=== PATIENT | female | born 1945 | race Caucasian/White ===

== ENCOUNTER 2017-11-10 17:48 | Inpatient (IN) ==
[2017-11-10] MEDS ORDERED: 0.9 % Sodium Chloride 1,000 ML IVC ONE (18:02)
[2017-11-10] MEDS ORDERED: Ondansetron 4 MG/2 ML VIAL IVP ONE ×2 (18:11→21:04)
[2017-11-10 18:46] LABS: Basophils # 0.1 K/mcL (0.0-0.2); Eosinophils # 0.1 K/mcL (0.0-0.6); Eosinophils % 0.8 %; Hematocrit 42.4 % (35.3-44.9); Hemoglobin 14.1 g/dL (11.5-15.4); Immature Granulocytes % 0.1 % (0-4); Lymphocytes # 1.5 K/mcL (0.6-4.6); Lymphocytes % 14.6 %; Mean Corpuscular HGB Conc 33.3 g/dL (31.6-35.5); Mean Corpuscular Volume 90.2 fL (83.0-100.0); Mean Platelet Volume 10.5 fL (9.4-12.4); Monocytes # 0.4 K/mcL (0.0-1.3); Monocytes % 4.3 %; Platelet Count 272 K/mcL (140-400); Segmented Neutrophils % 79.2 %
[2017-11-10 19:09] LABS: INR 1.1; Prothrombin Time 11.4 Seconds (9.4-12.1)
[2017-11-10] MEDS: *HR* FentaNYL (PF) 100 MCG/2 ML VIAL IVP ONE ×2 (19:32→19:36)
[2017-11-10] MEDS ORDERED: *HR* FentaNYL (PF) 100 MCG/2 ML VIAL IVP ONE (20:26)
--- NOTE | 2017-11-10 20:26 | General Surg History&Physical ---
Date of Encounter: 11/10/17 Time of Encounter: 19:50 Assessment and Plan (1) Cholelithiasis and acute cholecystitis with obstruction Current Visit: Yes Status: Acute The assessment and plan as outlined above was discussed with the patient and/or family members who expressed understanding and agreement. All questions were answered. The patient has a combination of cholelithiasis and suspected choledocholithiasis. She has right upper quadrant pain but no pain going through to her back. Liver function tests were reported as normal initially but then the results later were reported this canceled. Confirmatory liver function tests will be reviewed prior to decision-making. At this point I feel that removing the gallbladder and obtaining a cholangiogram may relieve the patient's symptoms. Further ERCP may be necessary if cholangiogram demonstrates choledocholithiasis. History of Present Illness Chief complaint: RUQ pain HPI: Ms. Holloway is a 72 year old female The patient had acute onset right upper quadrant pain earlier today. She continues to have right upper quadrant pain. She had nausea but no vomiting. She denies shakes chills or fever. She denies episodes of jaundice. She has not previously had episodes of this type. She sought evaluation in the emergency room. CAT scan demonstrated very mild pericholecystic fluid with no evidence of cholelithiasis. The patient has very little relief with narcotic pain medicine. The patient had normal white blood cell count and liver function tests. A follow-up ultrasound of the right upper quadrant demonstrated trace pericholecystic fluid but also demonstrated cholelithiasis as well as choledocholithiasis with a dilated common bile duct. Timing of surgical intervention is difficult to determine. Because of the degree of pain that she is having I am going to recommend laparoscopic cholecystectomy and cholangiogram on an urgent basis. I do not believe that the common bile duct is obstructed because of her liver function tests. She may have an obstructed gallbladder causing her symptoms. If this is the case removing the gallbladder will help her pain and provide a cholangiogram to guide further therapy that may require ERCP Past Med Surg Social Fam HX - Past Medical History Medical history: thyroid disease Psychiatric history: no psych history - Social History Smoking Status: Former smoker Smokeless Tobacco Status: No Alcohol use: none Drug use: none Medications and Allergies Levothyroxine [Synthroid] 50 mcg PO 0630 11/10/17 [History] Omeprazole [PriLOSEC] 20 mg PO DAILY 11/10/17 [History] 3 Allergy/AdvReac Type Severity Reaction Status Date / Time No Known Allergies Allergy Verified 04/14/16 21:05 Review of Systems All systems PM: The remainder of the systems were reviewed and are negative General Surgery Exam Initial Vital Signs Temp Pulse Resp BP Pulse Ox 97.8 F 78 16 149/85 97 11/10/17 17:52 11/10/17 17:52 11/10/17 17:52 11/10/17 17:52 11/10/17 17:52 - Neck no masses, no bruits, trachea midline, no lymphadectomy, no venous distension - Respiratory normal expansion, normal respiratory effort, clear to percussion, clear to auscultation - Cardiovascular Cardiovascular exam: Present: RRR, no murmurs/rubs/gallops - Abdomen Abdomen general surgery: Present: tender Abdominal Tenderness: Present: RUQ - Neurologic Present: CN 2-12 grossly intact, normal coordination, normal sensation - Psychiatric Psychiatric general surgery: Present: appropriate, oriented to person, oriented to place, oriented to time, speech is normal, memory intact Results - Labs 11/10/17 18:27 11/10/17 18:27 Diabetes panel 11/10/17 Range/Units 18:27 Sodium Cancelled Potassium Cancelled Chloride Cancelled Carbon Dioxide Cancelled BUN Cancelled Creatinine Cancelled Glucose Cancelled Calcium Cancelled AST Cancelled ALT Cancelled Alkaline Phosphatase Cancelled Albumin Cancelled Calcium panel 11/10/17 Range/Units 18:27 Calcium Cancelled Albumin Cancelled Pituitary panel 11/10/17 Range/Units 18:27 Sodium Cancelled Potassium Cancelled Chloride Cancelled Carbon Dioxide Cancelled BUN Cancelled Creatinine Cancelled Glucose Cancelled Calcium Cancelled Adrenal panel 11/10/17 Range/Units 18:27 Sodium Cancelled Potassium Cancelled Chloride Cancelled Carbon Dioxide Cancelled BUN Cancelled Creatinine Cancelled Glucose Cancelled Calcium Cancelled Total Bilirubin Cancelled AST Cancelled ALT Cancelled Alkaline Phosphatase Cancelled Albumin Cancelled All other labs normal. - Imaging CT scan - abdomen: image reviewed (I personally reviewed the CAT scan of the abdomen. This did not appear to be suggestive of cholelithiasis. There is a small amount of pericholecystic fluid.) US - abdomen: image reviewed (Ultrasound demonstrated cholelithiasis and probable choledocholithiasis.)
--- NOTE | 2017-11-10 20:47 | Emergency Department Note ---
Disposition Clinical Impression: Acute cholecystitis Disposition: Admitted As Inpatient Condition: Undetermined Referrals: Kiara Gunn CNP [Primary Care Provider] - Abdominal Pain HPI - General Chief Complaint: ED Abdominal Pain Stated Complaint: ABD Pain, N/V Time Seen by Provider: 11/10/17 17:58 Source: patient Nursing Notes Reviewed: Yes Vital Signs Reviewed: Yes - History of Present Illness HPI Narrative: 72-year-old female presents with concern for abdominal pain. The onset of her symptoms was earlier today. She was with her grandson and apparently developed acute onset abdominal pain. She went to [facility] but then was told to come to the emergency department after she was given Zofran. She has no fever or chills but does have significant right upper quadrant pain on arrival. Her vital signs are stable. She had some vomiting earlier but no diarrhea. General: No acute distress HEENT: Pupils equal and reactive to light, extraoccular muscle movement is normal, TMS are clear bilaterally. Heart: RRR, No murmor rub or gallop Lungs: lungs clear, no wheezing, rales or ronchi. ABD: There is moderate tenderness with positive Barksdale sign in the right upper quadrant Extremities: No cyanosis, clubbing or edema Neuro: CN 2-12 in tact, no focal deficit. strength 5/5. Medical decision making This is a elderly female patient with concern for acute cholecystitis. CT scan shows concern for pericholecystic fluid. Ultrasound with concern for choledocholithiasis. Patient's chemistry panel apparently had homolysis in the lab and was subsequently canceled. Repeat LFTs are pending. CMP shows no significant leukocytosis. I did contact the on-call general surgery attending is available at the bedside for consultation. He is agreed to admit the patient hospital for surgical evaluation. The patient was medicated for pain. We will proceed with admission to hospital for further management of possible acute cholecystitis. Pain Scale: 10 - Related Data Home Medications Medication Instructions Recorded Confirmed Levothyroxine [Synthroid] 50 mcg PO 0630 11/10/17 11/10/17 Omeprazole [PriLOSEC] 20 mg PO DAILY 11/10/17 11/10/17 Allergies Allergy/AdvReac Type Severity Reaction Status Date / Time No Known Allergies Allergy Verified 04/14/16 21:05 All systems ED: reviewed and negative except as stated. Abdominal Pain PMH - Past Medical History Medical history: Reports: thyroid disease Female Surgical History: Reports: hysterectomy MANAGER GLOBAL history: Reports: no MANAGER GLOBAL history Psychiatric history: Reports: no psych history - Social History Smoking status: Former smoker Alcohol use: Reports: none Drug use: Reports: none Physical Exam - General Limitations: no limitations General appearance: alert Course Vital Signs Temperature 97.8 F 11/10/17 17:52 Pulse Rate 78 11/10/17 17:52 Respiratory Rate 16 11/10/17 17:52 Blood Pressure 149/85 11/10/17 17:52 O2 Sat by Pulse Oximetry 97 11/10/17 17:52 Temperature 97.8 F 11/10/17 17:52 Pulse Rate 78 11/10/17 17:52 Respiratory Rate 16 11/10/17 17:52 Blood Pressure 149/85 11/10/17 17:52 O2 Sat by Pulse Oximetry 97 11/10/17 17:52 Oxygen Delivery Oxygen Delivery Room Air Abdominal Pain - Lab Data Result diagrams: 11/10/17 18:27 11/10/17 18:27 Lab Results 11/10/17 11/10/17 11/10/17 Range/Units 18:27 18:27 18:27 WBC 10.1 (4.3-11.1) K/mcL RBC 4.70 (3.82-4.97) M/mcL Hgb 14.1 (11.5-15.4) g/dL Hct 42.4 (35.3-44.9) % MCV 90.2 (83.0-100.0) fL MCH 30.0 (28.0-33.3) pg MCHC 33.3 (31.6-35.5) g/dL RDW 13.0 (11.5-14.5) % Plt Count 272 (140-400) K/mcL MPV 10.5 (9.4-12.4) fL Immature Gran % 0.1 (0-4) % Seg Neutrophils % 79.2 % Lymphocytes % 14.6 % Monocytes % 4.3 % Eosinophils % 0.8 % Basophils % 1.0 % Neutrophils # 8.0 (1.6-8.9) K/mcL Lymphocytes # 1.5 (0.6-4.6) K/mcL Monocytes # 0.4 (0.0-1.3) K/mcL Eosinophils # 0.1 (0.0-0.6) K/mcL Basophils # 0.1 (0.0-0.2) K/mcL PT 11.4 (9.4-12.1) Seconds INR 1.1 Sodium Cancelled Potassium Cancelled Chloride Cancelled Carbon Dioxide Cancelled BUN Cancelled Creatinine Cancelled Est GFR ( Amer) Cancelled Est GFR (Non-Af Amer) Cancelled BUN/Creatinine Ratio Cancelled Glucose Cancelled Calculated Osmolality Cancelled Lactic Acid (0.5-2.2) mmol/L Calcium Cancelled Total Bilirubin Cancelled Direct Bilirubin Cancelled Indirect Bilirubin Cancelled AST Cancelled ALT Cancelled Alkaline Phosphatase Cancelled Troponin I < 0.03 (< 0.04) ng/mL Serum Total Protein Cancelled Albumin Cancelled Globulin Cancelled Albumin/Globulin Ratio Cancelled Amylase Cancelled Lipase Cancelled Specimen Rejected 11/10/17 11/10/17 Range/Units 18:27 18:27 WBC (4.3-11.1) K/mcL RBC (3.82-4.97) M/mcL Hgb (11.5-15.4) g/dL Hct (35.3-44.9) % MCV (83.0-100.0) fL MCH (28.0-33.3) pg MCHC (31.6-35.5) g/dL RDW (11.5-14.5) % Plt Count (140-400) K/mcL MPV (9.4-12.4) fL Immature Gran % (0-4) % Seg Neutrophils % % Lymphocytes % % Monocytes % % Eosinophils % % Basophils % % Neutrophils # (1.6-8.9) K/mcL Lymphocytes # (0.6-4.6) K/mcL Monocytes # (0.0-1.3) K/mcL Eosinophils # (0.0-0.6) K/mcL Basophils # (0.0-0.2) K/mcL PT (9.4-12.1) Seconds INR Sodium Potassium Chloride Carbon Dioxide BUN Creatinine Est GFR ( Amer) Est GFR (Non-Af Amer) BUN/Creatinine Ratio Glucose Calculated Osmolality Lactic Acid 1.4 (0.5-2.2) mmol/L Calcium Total Bilirubin Direct Bilirubin Indirect Bilirubin AST ALT Alkaline Phosphatase Troponin I (< 0.04) ng/mL Serum Total Protein Albumin Globulin Albumin/Globulin Ratio Amylase Lipase Specimen Rejected Hemolyzed
[2017-11-10 20:57] LABS: Alanine Aminotransferase 17 Units/L (7-52); Albumin 3.8 g/dL (3.5-5.7); Albumin/Globulin Ratio 1.1 (1.1-2.2); Alkaline Phosphatase 119 Units/L (34-104); Amylase 38 Units/L (29-103); Aspartate Amino Transferase 26 Units/L (13-39); BUN/Creatinine Ratio 11 (6-26); Bilirubin,Direct 0.1 mg/dL (0.0-0.2); Bilirubin,Indirect 0.6 mg/dL (0.0-1.2); Bilirubin,Total 0.7 mg/dL (0.3-1.0); Blood Urea Nitrogen 7 mg/dL (8-23); Calcium 8.7 mg/dL (8.6-10.3); Carbon Dioxide 21 mEq/L (23-29); Chloride 107 mEq/L (98-107); Globulin 3.5 g/dL (2.4-3.5); Glucose 116 mg/dL (70-105); Lipase 5 Units/L (11-82); Osmolality,Calculated 281 (280-300); Potassium 3.7 mEq/L (3.5-5.1); Sodium 136 mEq/L (136-145); Total Protein 7.3 g/dL (6.4-8.9); eGFR For African Americans > 60 (> 60); eGFR For Non-African Americans > 60 (> 60)
--- NOTE | 2017-11-10 21:02 | Anesthesia Evaluation PreOp ---
Date of Encounter: 11/10/17 Time of Encounter: 22:57 - Past History Planned Operation: Lap. 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 Any Significant HX Other Medical History: Thyroid (Hypothyroid) Anesthesia History: No Prior Anesthetic Complications, Past Anesthesia ( Hysterectomy) : No Alcohol Use: none Drug use: none Medications and Allergies Levothyroxine [Synthroid] 50 mcg PO 0630 11/10/17 [History] Omeprazole [PriLOSEC] 20 mg PO DAILY 11/10/17 [History] 3 Allergy/AdvReac Type Severity Reaction Status Date / Time No Known Allergies Allergy Verified 04/14/16 21:05 - Meds/Allergy Pre-op Review Medications Reviewed: Yes Allergies Reviewed: Yes Beta Blockers on Current Med List: No Anesthesia Results - Labs 11/10/17 18:27 11/10/17 20:11 Anesthesia Exam Vital Signs/O2 Sat, Most Current Temp Pulse Resp BP Pulse Ox 97.8 F 78 16 149/85 97 11/10/17 17:52 11/10/17 17:52 11/10/17 17:52 11/10/17 17:52 11/10/17 17:52 NPO (# of Hours): > 8 hrs Pain Scale: 0 Pain Scale Used: Numeric (1 - 10) - HEENT Pupil (Motor): Pupils equal, EOMI Mallampati: II Teeth: Edentulous Denture Type: Upper: Complete, Lower: Complete Oral Opening: Greater than 3 - NARROW GAUGE ENGINEER LOC: Oriented NARROW GAUGE ENGINEER Motor: Normal RUE, Normal LUE, Normal RLE, Normal LLE, Normal Face NARROW GAUGE ENGINEER Sensory: Normal: RUE, LUE, RLE, LLE, Face - Cardiac Rhythm: Regular Murmur: None JVD: No Carotid Bruit: No - Pulmonary Breath Sounds: bilateral Clear Respiratory Effort: Symmetrical Anesthesia Assess/Plan ASA Score: 2 Modified Bonita Scale for Level of Consciousness: Cooperative, oriented, and tranquil Anesthetic Plan: General Autologous Blood: Yes Monitoring Plan: Standard Monitors Recovery Plan: PACU
[2017-11-10] MEDS ORDERED: *HR* Labetalol 100 MG/20 ML MDV IVP PRN (21:04)
[2017-11-10] MEDS ORDERED: *HR* HYDROmorphone 2 MG TABLET PO PRN (21:04)
[2017-11-10] MEDS ORDERED: *HR* FentaNYL (PF) 100 MCG/2 ML VIAL IVP PRN (21:04)
[2017-11-10] MEDS ORDERED: *HR* Promethazine 25 MG/ML VIAL IVP PRN (21:04)
[2017-11-10] MEDS ORDERED: *HR* Propofol 200 MG/20 ML VIAL IVP ONE (21:13)
[2017-11-10] MEDS ORDERED: *HR* Succinylcholine 200 MG/10 ML VIAL IVP ONE (21:14)
[2017-11-10] MEDS ORDERED: Dexamethasone 4 MG/ML VIAL ONE (21:14)
[2017-11-10] MEDS ORDERED: Lidocaine -MPF 2% 2 ML VIAL ONE (21:14)
[2017-11-10] MEDS ORDERED: *HR* Rocuronium Bromide 50 MG/5 ML VIAL ONE (21:14)
[2017-11-10 21:32] LABS: Bilirubin,Urine Negative (Negative); Blood,Urine Negative (Negative); Clarity,Urine Clear (Clear); Color,Urine Yellow (Yellow); Glucose,Urine (UA) Normal (Normal); Ketones,Urine 40 mg/dL (Negative); Leukocyte Esterase,Urine Small (Negative); Nitrite,Urine Negative (Negative); Protein,Urine Trace mg/dL (Neg-Trace); Specific Gravity,Urine 1.019 (1.010-1.025); Urobilinogen,Urine Normal (Normal)
[2017-11-10 21:34] LABS: Bacteria,Urine None Seen per hpf (None-Few); Hyaline Casts,Urine None Seen per lpf (None-Few); Squamous Epithelial Cell,Urine Many per lpf (None-Few)
[2017-11-10] MEDS ORDERED: 0.9 % Sodium Chloride 1,000 ML ONE (21:48)
[2017-11-10] MEDS ORDERED: *HR* Midazolam HCl 2 MG/2 ML VIAL ONE (22:48)
[2017-11-10] MEDS ORDERED: CefOXitin 1,000 MG VIAL ONE (22:55)
[2017-11-10] MEDS ORDERED: Isovue-300 150 ML INFUS..BTL IV ONE (23:09)
[2017-11-10] MEDS ORDERED: cefOXitin 2,000 MG in Water for inj. (sterile) 10 ML IVP ONE (23:33)
[2017-11-10] MEDS ORDERED: *HR* FentaNYL (PF) 100 MCG/2 ML VIAL ONE (23:40)
[2017-11-11] MEDS ORDERED: *HR* Metoprolol 5 MG/5 ML VIAL IVP ONE (00:10)
[2017-11-11] MEDS ORDERED: cefOXitin 2,000 MG in Water for inj. (sterile) 20 ML 20 ML IVP ONE ×2 (00:30→01:57)
[2017-11-11] MEDS ORDERED: *HR* Metoprolol 5 MG/5 ML VIAL IVP PRN ×2 (00:36→01:57)
[2017-11-11] MEDS ORDERED: OXYCODONE Oral CONC 10 MG/0.5 ML ORAL.SYG SL PRN (00:36)
[2017-11-11] MEDS ORDERED: Ondansetron 4 MG/2 ML VIAL IVP PRN ×2 (00:36→01:57)
--- NOTE | 2017-11-11 00:44 | Operative Note ---
Date of procedure: 11/11/17 Pre-op diagnosis: Cholelithiasis and acute cholecystitis and possible choledocholithiasis Post-op diagnosis: other (Cholelithiasis and acute cholecystitis with choledocholithiasis) Procedure: Laparoscopic cholecystectomy, cholangiogram Anesthesia: RUKHSANAA Surgeon: Favian Rosas Was there an dental hygiene administrative assistant present: No Estimated blood loss (cc): 40 Specimen: Gallbladder and contents Condition: stable Disposition: PACU Procedure in Detail: Laparoscopic cholecystectomy and intraoperative cholangiogram Operative procedure after informed consent and appropriate patient identification timeout the patient was taken to the major operating suite and placed supine position given adequate general endotracheal anesthesia the abdomen is prepped and draped in sterile fashion utilizing ChloraPrep standard draping techniques timeout was taken patient is identified. I made a vertical midline incision below the umbilicus dissected down to level of fascia there are 2 traction stitches placed in the abdominal cavity was entered visually. A Larsen trocar was placed in the abdomen and the abdomen was insufflated to 15 mmHg pressure CO2 the gallbladder was visualized. A placement 11 port in the subxiphoid area and 2 5 mm ports in the subcostal area. The gallbladder was acutely inflamed and obstructed. I decompressed the gallbladder. The gallbladder bladder was full of thin white mucus consistent with white bile. The gallbladder was grasped and elevated. A variety of blunt and sharp dissection techniques were used to isolate the cystic duct and cystic artery. The cystic artery was controlled with 2 surgical clips proximally and one distally and it was divided I placed a surgical clip on the neck the gallbladder and obtained an intraoperative cholangiogram using 20 mL of Isovue. Intraoperative cholangiogram demonstrated a dilated common bile duct with at least 2 distal common bile duct stones. There was flow into the duodenum. The cholangiocatheter was removed and the cystic duct was controlled with 2 surgical clips proximally and was divided the gallbladder was removed from the gallbladder fossae using electrocautery. The gallbladder was removed through the #11 port site. I replaced the #11 port and irrigated with copious amounts of antibiotic containing solution. There is no evidence of bleeding or bile leak. All trochars were removed. Fascia was closed with 0 Vicryl skin with 2- 0 and 4-0 Vicryl he tolerated the procedure well and was transferred to recovery in stable condition
[2017-11-11] MEDS ORDERED: 0.9 % Sodium Chloride 1,000 ML IVC SCH (00:45)
--- NOTE | 2017-11-11 01:31 | Anesthesia Evaluation Post Op ---
Date of Encounter: 11/11/17 Time of Encounter: 01:30 - Vital Signs Vital Signs: Vital Signs/O2 Sat, Most Current Temp Pulse Resp BP Pulse Ox 98.7 F 80 20 89/72 96 11/11/17 01:14 11/11/17 01:14 11/11/17 01:14 11/11/17 01:14 11/11/17 01:14 - Lungs Lungs: Clear Ascult./Percussion - Airway Airway: Non-obstructed - Cardiovascular Regular Rate - Mental Status Mental Status: Alert & Oriented, Answers Appropriately - Pain Pain Scale: 0 Pain Scale used: Numeric (1 - 10) - Nausea Vomiting Nausea Vomiting: Not Present - Hydration Hydration: NPO, Has not voided - Discharge PostOp Status: Transfer Patient to floor
[2017-11-11] MEDS: 0.9 % Sodium Chloride 1,000 ML IVC SCH ×2 (02:48→16:29)
[2017-11-11] MEDS: OXYCODONE Oral CONC 10 MG/0.5 ML ORAL.SYG SL PRN (04:24)
[2017-11-11] MEDS: Pantoprazole 40 MG VIAL IVP SCH (05:22)
[2017-11-11] MEDS: *HR* Heparin 5,000 UNIT/ML VIAL SQ SCH ×2 (05:22→16:29)
[2017-11-11] MEDS ORDERED: *HR* Heparin 5,000 UNIT/ML VIAL SQ SCH (06:00)
[2017-11-11] MEDS ORDERED: Pantoprazole 40 MG VIAL IVP SCH (06:30)
[2017-11-11] MEDS ORDERED: cefOXitin 2,000 MG in Water for inj. (sterile) 20 ML 10 ML IVP SCH (08:00)
[2017-11-11 08:57] LABS: Alanine Aminotransferase 21 Units/L (7-52); Albumin 3.4 g/dL (3.5-5.7); Alkaline Phosphatase 104 Units/L (34-104); Aspartate Amino Transferase 33 Units/L (13-39); BUN/Creatinine Ratio 9 (6-26); Bilirubin,Direct 0.2 mg/dL (0.0-0.2); Bilirubin,Indirect 0.6 mg/dL (0.0-1.2); Bilirubin,Total 0.8 mg/dL (0.3-1.0); Blood Urea Nitrogen 6 mg/dL (8-23); Calcium 8.4 mg/dL (8.6-10.3); Carbon Dioxide 24 mEq/L (23-29); Chloride 109 mEq/L (98-107); Globulin 3.3 g/dL (2.4-3.5); Glucose 133 mg/dL (70-105); Osmolality,Calculated 290 (280-300); Potassium 3.6 mEq/L (3.5-5.1); Sodium 140 mEq/L (136-145); Total Protein 6.7 g/dL (6.4-8.9); eGFR For African Americans > 60 (> 60); eGFR For Non-African Americans > 60 (> 60)
[2017-11-11] MEDS: cefOXitin 2,000 MG in Water for inj. (sterile) 20 ML 10 ML IVP SCH ×3 (09:10→23:29)
[2017-11-11 09:50] LABS: Basophils % 0.1 %; Hematocrit 37.1 % (35.3-44.9); Immature Granulocytes % 0.4 % (0-4); Lymphocytes % 7.2 %; Mean Corpuscular HGB Conc 32.6 g/dL (31.6-35.5); Mean Corpuscular Hemoglobin 30.3 pg (28.0-33.3); Mean Corpuscular Volume 92.8 fL (83.0-100.0); Monocytes # 1.3 K/mcL (0.0-1.3); Monocytes % 9.3 %; Neutrophils # 11.1 K/mcL (1.6-8.9); Platelet Count 229 K/mcL (140-400); Red Cell Distribution Width 13.2 % (11.5-14.5)
[2017-11-11 09:51] LABS: Hemoglobin 12.1 g/dL (11.5-15.4)
--- NOTE | 2017-11-11 10:12 | General Surgery Progress Note ---
<Flo Boone - Last Filed: 11/11/17 10:10> Date of Encounter: 11/11/17 Time of Encounter: 10:10 - Assessment and Plan (1) Status post laparoscopic cholecystectomy Status: Acute POD #1 s/p laparoscopic cholecystectomy and intraoperative Cholngiogram Patient tolerated procedure well well. However, intraoperative cholangiogram demonstrated a dilated common bile duct with at least 2 distal common bile duct stones. Plan: IVF Keep patient NPO. Consult GI (Dr. Rosas placed call) Possible ERCP today per GI for choledocholithiasis supportive care and pain control G.I. prophylaxis DVT prophylaxis await return of bowel functions (2) Cholelithiasis and acute cholecystitis with obstruction Status: Acute See plan as above. (3) Choledocholithiasis Status: Acute Consulted GI. Called was place by . Plan for possible ERCP. (4) DVT prophylaxis Status: Acute Heparin 5000 units subcutaneous twice daily for DVT prophylaxis EPCDs to bilateral lower extremities for DVT prophylaxis Ambulate hallways 3 times a day with assistance Subjective Patient reports: no new complaints, feels better, no flatus, no bowel movement, afebrile Narrative: The patient was seen and evaluated at bedside this morning. Daughter is at bedside. The patient is awake, alert, interactive, afebrile, and appears in no acute distress. The patient states she has no pain at this time. She would like a regular diet. However, the patient was informed that there is a stone in her common bile duct. She was recommended to remain NPO for a possibly ERCP today. Patient verbalizes understanding. Patient denies passing any gas but has had any bowel movements today. The patient denies any fever, headaches, vision changes, chest pain, shortness of breath, difficulty urinating, nausea, vomiting, any weaknesses at this time. The patient has no other concerns at this time. Objective Vital Signs - Last 8 Hours Temp Pulse Resp BP Pulse Ox 11/11/17 07:11 99.0 F 74 18 96/57 95 11/11/17 03:54 98.1 F 77 16 119/81 96 11/11/17 03:51 94 11/11/17 02:56 98.1 F 74 14 130/72 96 11/11/17 02:24 98.4 F 71 14 137/69 96 Intake and Output 11/10/17 11/11/17 11/11/17 23:59 07:59 15:59 Intake Total 0 / 0 0 / 0 Output Total 40 / 40 Balance -40 / -40 0 / 0 Intake: Oral 0 / 0 0 / 0 Output: Urine 0 / 0 Estimated Blood Loss 40 / 40 Other: Meal NPO Percent of Meal Consumed 0% - General physical appearance well developed, well nourished, no distress - Eyes PERRL - ENT normal mucosa - Neck Neck exam: trachea midline - Respiratory normal expansion, normal respiratory effort, clear to auscultation - Cardiovascular Cardiovascular exam: Present: RRR - Abdomen Abdomen: Present: bowel sounds present, soft, tender (Mild tenderness to palpation near her surgical incisions. Expected and appropriate post operative tenderness.). Absent: distended Hernia: none - Incision Incision: Present: clean and dry, intact. Absent: draining, purulent - Integumentary no rash, no abnormal pigmentation - Neurologic CN 2-12 grossly intact - Psychiatric oriented to time, oriented to person, oriented to place - Labs 11/11/17 07:06 11/11/17 07:06 Diabetes panel 11/11/17 Range/Units 07:06 Sodium 140 (136-145) mEq/L Potassium 3.6 (3.5-5.1) mEq/L Chloride 109 H (98-107) mEq/L Carbon Dioxide 24 (23-29) mEq/L BUN 6 L (8-23) mg/dL Creatinine 0.64 (0.60-1.20) mg/dL Glucose 133 H (70-105) mg/dL Calcium 8.4 L (8.6-10.3) mg/dL AST 33 (13-39) Units/L ALT 21 (7-52) Units/L Alkaline Phosphatase 104 (34-104) Units/L Albumin 3.4 L (3.5-5.7) g/dL Calcium panel 11/11/17 Range/Units 07:06 Calcium 8.4 L (8.6-10.3) mg/dL Albumin 3.4 L (3.5-5.7) g/dL Pituitary panel 11/11/17 Range/Units 07:06 Sodium 140 (136-145) mEq/L Potassium 3.6 (3.5-5.1) mEq/L Chloride 109 H (98-107) mEq/L Carbon Dioxide 24 (23-29) mEq/L BUN 6 L (8-23) mg/dL Creatinine 0.64 (0.60-1.20) mg/dL Glucose 133 H (70-105) mg/dL Calcium 8.4 L (8.6-10.3) mg/dL Adrenal panel 11/11/17 Range/Units 07:06 Sodium 140 (136-145) mEq/L Potassium 3.6 (3.5-5.1) mEq/L Chloride 109 H (98-107) mEq/L Carbon Dioxide 24 (23-29) mEq/L BUN 6 L (8-23) mg/dL Creatinine 0.64 (0.60-1.20) mg/dL Glucose 133 H (70-105) mg/dL Calcium 8.4 L (8.6-10.3) mg/dL Total Bilirubin 0.8 (0.3-1.0) mg/dL AST 33 (13-39) Units/L ALT 21 (7-52) Units/L Alkaline Phosphatase 104 (34-104) Units/L Albumin 3.4 L (3.5-5.7) g/dL - VTE Documentation of Mechanical Device: Intermittent pneumatic compression device Consult Discharge Plan - Plan Instructions: Laparoscopic Cholecystectomy (DC), Endoscopic Retrograde Cholangiopancreatography (DC) Additional Instructions: 1. No pushing, pulling, or lifting greater than 15 lbs for 4 weeks (depending upon procedure). 2. You may shower beginning today, but no tub baths, soaking, or swimming for 2 weeks. 3. You may resume driving when you are off narcotics and are safe to react in a car. 4. Take ibuprofen every 8 hours for discomfort. If this does not relieve discomfort, you may take the as needed Percocet. Take narcotics as directed. Do not take more narcotics then directed and do not share your narcotics with any other person. Do not drink alcohol while on narcotics. 5. Take stool softeners (Colace) or a water based laxative (Miralax) while taking narcotics. You may hold for loose stools. 6. Report any fevers greater than 100.5F, increase abdominal discomfort, drainage that looks like pus, increased redness or pain at the surgical site, or any vomiting. 7. Report any pain in the calves, shortness of breath, or rapid heartbeat. 8. Follow-up in the office as directed. 9. If you were prescribed antibiotics, do not stop them without talking to your provider. Referrals: Yaa Pham CNP [Advanced Practice Nurse] - 11/23/17 1:15 pm (s/p laparoscopic cholecystectomy with Dr. Rosas. Status post ERCP) Freddy Head MD [Partnered Physician] - (Web Request entered. Office will call with date and time of appointment. Thank you) Prescriptions: OxyCODONE/APAP 10/325 [Percocet 10/325 MG] 1 each PO Q6HR PRN 6 Days #24 tablet PRN Reason: Pain Ibuprofen [Motrin] 600 mg PO Q8HR PRN #30 tab PRN Reason: Pain Docusate [Colace] 100 mg PO BID PRN #30 capsule PRN Reason: Constipation <Favian Rosas - Last Filed: 11/17/17 15:41> Date of Encounter: 11/11/17 - Assessment and Plan (1) Cholelithiasis and acute cholecystitis with obstruction Status: Acute Objective - Labs 11/13/17 04:54 11/13/17 04:54 - Attending Attestation I examined this patient and my medical decision-making was reviewed with the Resident Physician. I agree with the documented findings, disposition and treatment plan as described except to the extent set forth below. The patient is seen and evaluated with rest and on rounds. The patient has distal common bile duct stones and will require evaluation by gastroenterology. Timing of ERCP at the discretion of gastroenterology Favian Rosas MD FACS
[2017-11-11] MEDS ORDERED: *HR* Propofol 200 MG/20 ML VIAL IVP ONE (10:29)
[2017-11-11] MEDS ORDERED: *HR* FentaNYL (PF) 100 MCG/2 ML VIAL ONE ×2 (10:29)
[2017-11-11] MEDS ORDERED: *HR* Rocuronium Bromide 50 MG/5 ML VIAL ONE (10:32)
[2017-11-11] MEDS ORDERED: Ondansetron 4 MG/2 ML VIAL ONE (10:32)
[2017-11-11] MEDS ORDERED: Lidocaine -MPF 2% 2 ML VIAL ONE (10:32)
[2017-11-11] MEDS ORDERED: Dexamethasone 4 MG/ML VIAL ONE (10:32)
--- NOTE | 2017-11-11 10:51 | Anesthesia Evaluation PreOp ---
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 HX Other Medical History: Thyroid, GERD Anesthesia History: No Prior Anesthetic Complications, Past Anesthesia Alcohol Use: none Drug use: none Medications and Allergies Levothyroxine [Synthroid] 50 mcg PO 0630 11/10/17 [History] Omeprazole [PriLOSEC] 20 mg PO DAILY 11/10/17 [History] 3 Allergy/AdvReac Type Severity Reaction Status Date / Time No Known Allergies Allergy Verified 04/14/16 21:05 - Meds/Allergy Pre-op Review Medications Reviewed: Yes Allergies Reviewed: Yes Beta Blockers on Current Med List: No Anesthesia Results - Labs 11/11/17 07:06 11/11/17 07:06 - Imaging EKG: report reviewed (01/30/2014 Sinus rhythm Normal ECG) Anesthesia Exam Height: 5'/1.52 m Weight: 135 lbs/61 kg NPO (# of Hours): 8 Pain Scale: 0 Pain Scale Used: Numeric (1 - 10) - HEENT Pupil (Motor): EOMI Mallampati: II Teeth: Edentulous Oral Opening: Greater than 3 - ORACLE SOA CONSULTANT LOC: Oriented ORACLE SOA CONSULTANT Motor: Normal RUE, Normal LUE, Normal RLE, Normal LLE, Normal Face ORACLE SOA CONSULTANT Sensory: Normal: RUE, LUE, RLE, LLE, Face - Cardiac Rhythm: Regular Murmur: None - Pulmonary Breath Sounds: bilateral Clear Respiratory Effort: Symmetrical Anesthesia Assess/Plan ASA Score: 2 Modified Rosser Scale for Level of Consciousness: Cooperative, oriented, and tranquil Anesthetic Plan: General Monitoring Plan: Standard Monitors Recovery Plan: PACU
--- NOTE | 2017-11-11 12:53 | Gastroenterology Consult Note ---
<Ros Ramn Natty - Last Filed: 11/11/17 12:48> Date of Encounter: 11/11/17 Time of Encounter: 11:15 - Assessment and plan (1) Choledocholithiasis Current Visit: Yes Status: Acute Assessment and plan: Will plan for ERCP, either today or tomorrow. Pt and daughter were advised benefits and risks including pancreatitis and infection and they verbalize understanding and are in agreement with the treatment plan. - Time Spent With Patient Total time spent is greater than 50% in coordination of care (as documented) at patient's floor/unit and/or counseling patient: GI History of Present Illness - Data of Consult Patient: new to practice Consult date: 11/11/17 Requesting Physician: Favian Rosas MD - Consult Narrative Reason for consult: choledocholitiasis History of present illness: Ms. Holloway is a 72 year old female with a pmhx of thyroid disease. She presented with acute onset of right upper quadrant pain. She is status post laproscopic cholecystectomy with IOC, which showed dilated common bile duct with at least 2 distal common bile duct stones. She denies any abdominal pain other than soreness with movement. She denies nausea or vomiting. She states she feels much better than when she came in. She denies any flatus or BM following surgery. She denies fever or chills. Past Med Surg Social Fam HX - Past Medical History Medical history: thyroid disease Psychiatric history: no psych history - Social History Smoking Status: Former smoker Smokeless Tobacco Status: No Alcohol use: none Drug use: none - Family History Mother Living Status: Hx Family Cancer: Yes (ovarian) Review of Systems: GI: as per [facility] GENERAL: denies fever or chills EYES: denies yellow discoloration ENT: denies pain with swallowing or difficulty swallowing CARDIO: denies chest pain, palpitations RESP: No Shortness of breath with exertion : denies change in color of urine NEURO: denies any weakness HEME: Denies any bruising MS: denies joint pain, joint swelling or back pain. DERM: denies rash or itching PSYCH: Denies history of anxiety or depression - Constitutional Vitals: Temp Pulse Resp BP Pulse Ox 98.9 F 82 18 99/59 94 11/11/17 10:49 11/11/17 10:49 11/11/17 10:49 11/11/17 10:49 11/11/17 10:49 Exam: CONSTITUTIONAL:~alert, no acute distress.~HEAD:~normocephalic.~EYES:~no jaundice.~NECK:~no obvious swelling.~HEART:~regular rate and rhythm, no murmurs. ~LUNGS:~bilateral good air entry.~ABDOMEN:~softly distended, tender, no masses palpable, no organomegaly, laproscopic incisions well approximated, small amount of bruising noted, no redness or drainage.~RECTAL EXAM:~Deferred.~ EXTREMITIES:~no clubbing, cyanosis or edema.~SKIN:~no stigmata of chronic liver disease.~NEUROLOGIC:~no obvious focal defect.~~~~ Results - Labs CBC & Chem 7: 11/11/17 07:06 11/11/17 07:06 Labs: Last Result Calcium 8.4 mg/dL (8.6-10.3) L 11/11/17 07:06 Troponin I < 0.03 ng/mL (< 0.04) 11/10/17 18:27 Entire Visit Hgb 12.1 g/dL (11.5-15.4) D 11/11/17 07:06 Hct 37.1 % (35.3-44.9) 11/11/17 07:06 PT 11.4 Seconds (9.4-12.1) 11/10/17 18:27 Total Bilirubin 0.8 mg/dL (0.3-1.0) 11/11/17 07:06 AST 33 Units/L (13-39) 11/11/17 07:06 ALT 21 Units/L (7-52) 11/11/17 07:06 Amylase 38 Units/L (29-103) 11/10/17 20:11 Lipase 5 Units/L (11-82) L 11/10/17 20:11 - ABG ABG results: PT/INR, D-dimer PT 11.4 Seconds (9.4-12.1) 11/10/17 18:27 - Impressions Impressions Cholangiogram,Operative 11/11/17 00:00 IMPRESSION: 2 filling defects in the distal common duct which is mildly dilated. Findings are favored to represent choledocholithiasis over air bubbles due to lack of mobility on imaging. However, correlation with intraoperative findings is recommended. D/ / Wong Gleason MD / Wong Gleason MD Interpreting Provider: Wong Gleason MD Consult Discharge Plan - Plan Referrals: Kiara Gunn, DIRECTOR OF STATE [Primary Care Provider] - <Freddy Head - Last Filed: 11/11/17 17:01> Date of Encounter: 11/11/17 - Time Spent With Patient Total time spent is greater than 50% in coordination of care (as documented) at patient's floor/unit and/or counseling patient: GI History of Present Illness - Data of Consult Requesting Physician: Favian Rosas MD - Consult Narrative History of present illness: Ms. Holloway is a 72 year old female - Constitutional Vitals: Temp Pulse Resp BP Pulse Ox 98.6 F 77 18 96/54 94 11/11/17 15:07 11/11/17 15:07 11/11/17 15:07 11/11/17 15:07 11/11/17 15:07 Results - Labs CBC & Chem 7: 11/11/17 07:06 11/11/17 07:06 Labs: Last Result Calcium 8.4 mg/dL (8.6-10.3) L 11/11/17 07:06 Troponin I < 0.03 ng/mL (< 0.04) 11/10/17 18:27 Entire Visit Hgb 12.1 g/dL (11.5-15.4) D 11/11/17 07:06 Hct 37.1 % (35.3-44.9) 11/11/17 07:06 PT 11.4 Seconds (9.4-12.1) 11/10/17 18:27 Total Bilirubin 0.8 mg/dL (0.3-1.0) 11/11/17 07:06 AST 33 Units/L (13-39) 11/11/17 07:06 ALT 21 Units/L (7-52) 11/11/17 07:06 Amylase 38 Units/L (29-103) 11/10/17 20:11 Lipase 5 Units/L (11-82) L 11/10/17 20:11 - ABG ABG results: PT/INR, D-dimer PT 11.4 Seconds (9.4-12.1) 11/10/17 18:27 - Impressions Impressions Cholangiogram,Operative 11/11/17 00:00 IMPRESSION: 2 filling defects in the distal common duct which is mildly dilated. Findings are favored to represent choledocholithiasis over air bubbles due to lack of mobility on imaging. However, correlation with intraoperative findings is recommended. D/ / Wong Gleason MD / Wong Gleaosn MD Interpreting Provider: Wong Gleason MD - Attending Attestation I have personally performed a face to face evaluation on this patient. I have reviewed and agree with the care plan. History and Exam by me shows: pt seen. No abd pain. 1 to eats. IOC with to CBD stone LFTs are normal. Recommendation ERCP tomorrow
[2017-11-11] MEDS ORDERED: Ibuprofen 800 MG TABLET PO PRN (17:53)
[2017-11-11] MEDS: Nystatin POWDER 30 GM BOTTLE TP SCH (21:01)
[2017-11-12] MEDS: OXYCODONE Oral CONC 10 MG/0.5 ML ORAL.SYG SL PRN ×2 (04:05→16:49)
[2017-11-12] MEDS: 0.9 % Sodium Chloride 1,000 ML IVC SCH ×2 (04:05→22:43)
[2017-11-12] MEDS: *HR* Heparin 5,000 UNIT/ML VIAL SQ SCH ×2 (05:24→16:50)
[2017-11-12] MEDS: Pantoprazole 40 MG VIAL IVP SCH (05:26)
[2017-11-12] MEDS: Nystatin POWDER 30 GM BOTTLE TP SCH ×2 (09:00→22:43)
[2017-11-12] MEDS: cefOXitin 2,000 MG in Water for inj. (sterile) 20 ML 10 ML IVP SCH ×2 (09:00→16:48)
--- NOTE | 2017-11-12 10:51 | General Surgery Progress Note ---
Date of Encounter: 11/12/17 Time of Encounter: 08:00 - Assessment and Plan (1) Status post laparoscopic cholecystectomy Current Visit: Yes Status: Acute POD #2 s/p laparoscopic cholecystectomy and intraoperative Cholngiogram Patient tolerated procedure well well. However, intraoperative cholangiogram demonstrated a dilated common bile duct with at least 2 distal common bile duct stones. Plan: IVF Keep patient NPO. ERCP plan for today per GI supportive care and pain control G.I. prophylaxis DVT prophylaxis await return of bowel functions (2) Cholelithiasis and acute cholecystitis with obstruction Current Visit: Yes Status: Acute See plan as above. (3) Choledocholithiasis Current Visit: Yes Status: Acute ERCP scheduled today per GI (4) DVT prophylaxis Current Visit: Yes Status: Acute Heparin 5000 units subcutaneous twice daily for DVT prophylaxis EPCDs to bilateral lower extremities for DVT prophylaxis Ambulate hallways 3 times a day with assistance Subjective Patient reports: no new complaints, feels better, flatus, no bowel movement, afebrile Narrative: The patient was seen and evaluated at bedside this morning. Granddaughter at bedside. Patient was sitting up in the chair, awake, alert, afebrile, and appears in no acute distress. Patient admits she is passing gas but has not had a bowel movement. She is denying any pain at this time. She states that she really like something to drink and eat as soon as she can. The patient denies any fever, headaches, vision changes, near syncope, chest pain, shortness of breath, difficulty breathing, abdominal pain, urinary symptoms, nausea, vomiting, and any weaknesses. The patient has no other concerns at this time. Objective Vital Signs - Last 8 Hours Temp Pulse Resp BP Pulse Ox 11/12/17 08:00 107/55 11/12/17 07:00 99.0 F 78 14 87/37 93 11/12/17 05:22 99.4 F 82 15 93/56 92 Intake and Output 11/11/17 11/12/17 11/12/17 23:59 07:59 15:59 Intake Total 1010 / 1010 1010 / 1010 10 / 10 Output Total 1900 / 1900 700 / 700 Balance -890 / -890 310 / 310 10 / 10 Intake: IV Fluids 1010 / 1010 1010 / 1010 10 / 10 0.9 % Sodium Chloride 1,000 ML 1000 / 1000 1000 / 1000 @ 75 mls/hr IVC .[id number] [facility] Rx #:[id number] Mefoxin 2,000 MG In Water for inj. (sterile) 10 ML @ 150 mls/ hr IVP Q8HR [facility] Rx#:[id number] Oral 0 / 0 0 / 0 Output: Urine 1900 / 1900 700 / 700 Other: Meal npo NPO Blood Glucose* 88 92 - General physical appearance well developed, well nourished, no distress - Eyes PERRL, normal ocular movement - ENT dry mucosa - Neck Neck exam: trachea midline - Respiratory normal expansion, normal respiratory effort, clear to auscultation - Cardiovascular Cardiovascular exam: Present: RRR, no murmurs/rubs/gallops - Abdomen Abdomen: Present: bowel sounds present (Hypoactive bowel sounds), soft, non tender. Absent: distended, guarding, rebound, rigid - Incision Incision: Present: clean and dry, intact. Absent: draining, erythema, purulent - Integumentary no rash, no abnormal pigmentation - Neurologic CN 2-12 grossly intact - Psychiatric oriented to time, oriented to person, oriented to place - Labs 11/11/17 07:06 11/11/17 07:06 - VTE Documentation of Mechanical Device: Intermittent pneumatic compression device Consult Discharge Plan - Plan Referrals: Kiara Gunn CNP [Primary Care Provider] -
[2017-11-12] MEDS ORDERED: Lidocaine -MPF 4% 5 ML AMPUL ONE (12:47)
[2017-11-12] MEDS ORDERED: *HR* Propofol 200 MG/20 ML VIAL IVP ONE (12:48)
[2017-11-12] MEDS ORDERED: Ringers Solution, Lactated 1,000 ML IVC SCH (14:00)
[2017-11-12] MEDS ORDERED: Dexamethasone 4 MG/ML VIAL ONE (14:04)
[2017-11-12] MEDS ORDERED: Ondansetron 4 MG/2 ML VIAL ONE (14:04)
[2017-11-12] MEDS ORDERED: Indomethacin 50 MG SUPP.RECT RC ONE (15:12)
--- NOTE | 2017-11-12 15:36 | Anesthesia Evaluation Post Op ---
Date of Encounter: 11/12/17 Time of Encounter: 15:33 - Vital Signs Vital Signs: Vital Signs - Last 8 Hours Temp Pulse Resp BP Pulse Ox 11/12/17 15:28 98.6 F 85 20 119/60 96 11/12/17 15:18 98.5 F 86 22 119/55 96 11/12/17 15:08 98.5 F 91 28 124/63 95 11/12/17 13:51 93 18 111/60 94 11/12/17 10:57 98.4 F 91 12 122/72 96 11/12/17 08:00 107/55 Intake and Output 11/11/17 11/12/17 11/12/17 23:59 07:59 15:59 Intake Total 1010 / 1010 1010 / 1010 10 10 Output Total 1900 / 1900 700 / 700 120 / 120 Balance -890 / -890 310 / 310 -110 / -110 Intake: IV Fluids 1010 / 1010 1010 / 1010 10 / 10 0.9 % Sodium Chloride 1,000 ML 1000 / 1000 1000 / 1000 @ 75 mls/hr IVC .[id number] [facility] Rx #:[id number] Mefoxin 2,000 MG In Water for 10 10 / 10 inj. (sterile) 10 ML @ 150 mls/ hr IVP Q8HR [facility] Rx#:[id number] Oral 0 / 0 0 / 0 Output: Urine 1900 / 1900 700 / 700 120 / 120 Other: Meal npo npo Blood Glucose* 88 92 72 - Lungs Lungs: Clear Ascult./Percussion - Airway Airway: Non-obstructed - Cardiovascular Regular Rate, Baseline Rhythm - Mental Status Mental Status: Alert & Oriented, Answers Appropriately - Pain Pain Scale: 0 Pain Scale used: Numeric (1 - 10) - Nausea Vomiting Nausea Vomiting: Not Present - Hydration Hydration: NPO - Discharge PostOp Status: Transfer Patient to floor
[2017-11-13] MEDS: cefOXitin 2,000 MG in Water for inj. (sterile) 20 ML 10 ML IVP SCH ×2 (00:28→09:40)
[2017-11-13 05:31] LABS: Basophils % 0.2 %; Eosinophils % 0.1 %; Hematocrit 32.7 % (35.3-44.9); Hemoglobin 10.6 g/dL (11.5-15.4); Immature Granulocytes % 0.5 % (0-4); Lymphocytes # 1.2 K/mcL (0.6-4.6); Lymphocytes % 11.8 %; Mean Corpuscular HGB Conc 32.4 g/dL (31.6-35.5); Mean Corpuscular Hemoglobin 29.9 pg (28.0-33.3); Mean Corpuscular Volume 92.4 fL (83.0-100.0); Mean Platelet Volume 10.9 fL (9.4-12.4); Monocytes # 0.9 K/mcL (0.0-1.3); Monocytes % 9.3 %; Neutrophils # 7.8 K/mcL (1.6-8.9); Platelet Count 208 K/mcL (140-400); Red Blood Count 3.54 M/mcL (3.82-4.97); Red Cell Distribution Width 13.2 % (11.5-14.5); Segmented Neutrophils % 78.1 %
[2017-11-13] MEDS: Pantoprazole 40 MG VIAL IVP SCH (05:47)
[2017-11-13] MEDS: *HR* Heparin 5,000 UNIT/ML VIAL SQ SCH (05:48)
[2017-11-13] MEDS: OXYCODONE Oral CONC 10 MG/0.5 ML ORAL.SYG SL PRN (05:48)
[2017-11-13 06:40] LABS: Alanine Aminotransferase 15 Units/L (7-52); Albumin 3.1 g/dL (3.5-5.7); Albumin/Globulin Ratio 0.9 (1.1-2.2); Alkaline Phosphatase 111 Units/L (34-104); Aspartate Amino Transferase 20 Units/L (13-39); BUN/Creatinine Ratio 11 (6-26); Bilirubin,Direct 0.2 mg/dL (0.0-0.2); Bilirubin,Indirect 0.5 mg/dL (0.0-1.2); Bilirubin,Total 0.7 mg/dL (0.3-1.0); Blood Urea Nitrogen 7 mg/dL (8-23); Calcium 8.2 mg/dL (8.6-10.3); Carbon Dioxide 24 mEq/L (23-29); Chloride 109 mEq/L (98-107); Globulin 3.5 g/dL (2.4-3.5); Glucose 109 mg/dL (70-105); Osmolality,Calculated 289 (280-300); Potassium 3.7 mEq/L (3.5-5.1); Sodium 140 mEq/L (136-145); Total Protein 6.6 g/dL (6.4-8.9); eGFR For African Americans > 60 (> 60); eGFR For Non-African Americans > 60 (> 60)
[2017-11-13] MEDS: Nystatin POWDER 30 GM BOTTLE TP SCH (09:41)
--- NOTE | 2017-11-13 10:07 | Discharge Summary ---
Date of Encounter: 11/13/17 Time of Encounter: 08:30 - Discharge Diagnosis (1) Status post laparoscopic cholecystectomy Priority: Primary Status: Acute (2) Cholelithiasis and acute cholecystitis with obstruction Priority: Primary Status: Acute (3) Choledocholithiasis Priority: Secondary Status: Acute (4) DVT prophylaxis Priority: Secondary Status: Acute General Surgery Exam Initial Vital Signs Temp Pulse Resp BP Pulse Ox 97.8 F 78 16 149/85 97 11/10/17 17:52 11/10/17 17:52 11/10/17 17:52 11/10/17 17:52 11/10/17 17:52 - General physical appearance well developed, well nourished, no distress, no pain - Eyes PERRL, normal ocular movement - ENT normal mucosa - Neck trachea midline - Respiratory normal expansion, normal respiratory effort, other (Dry cough present on exam) - Cardiovascular Cardiovascular exam: Present: RRR, no murmurs/rubs/gallops - Abdomen Abdomen general surgery: Present: bowel sounds present, soft, tender (Hay tenderness near his surgical incisions. Expected an appropriate post operative tenderness.), wound (There are bruises present around surgical incisions. Incisions are clean, dry, and intact.). Absent: distended - Incision Incision: Present: clean and dry, intact. Absent: draining, purulent - Integumentary Integumentary general surgery: Present: warm and dry. Absent: rash - Neurologic Present: CN 2-12 grossly intact - Psychiatric Psychiatric general surgery: Present: appropriate, oriented to person, oriented to place, oriented to time, speech is normal, other (Very pleasant) - Hospital Course Hospital course: Ms. Holloway is a 72 year old female who had an acute onset right upper quadrant pain on 11/10/2017. She continued to have right upper quadrant pain throughout the day with associated nausea but no vomiting. She denied shakes, chills, or fever. She denies episodes of jaundice. She sought evaluation in the emergency room. CAT scan demonstrated very mild pericholecystic fluid with no evidence of cholelithiasis. The patient had normal white blood cell count and liver function tests. A follow-up ultrasound of the right upper quadrant demonstrated trace pericholecystic fluid but also demonstrated cholelithiasis as well as choledocholithiasis with a dilated common bile duct. Patient had laparoscopic cholecystectomy and cholangiogram on an urgent basis on 2017. Intraoperative cholangiogram demonstrated a dilated common bile duct with at least 2 distal common bile duct stones. Patient tolerated the procedure well. Undercover Cop was then consulted for ERCP. Patient had ERCP completed on 11/12/2017. The patient tolerated procedure well. The patient admits passing gas and having bowel movements. She describes of bowel movements as soft and nonbloody. She currently denies any pain at this time. She tolerates her full liquid diet without any nausea, vomiting, or difficulty. She denies any fever, headaches, vision changes, near syncope, chest pain, shortness of breath, difficulty breathing, diarrhea, blood in her stools, urinary symptoms, nausea, vomiting, and any weaknesses. The patient has no other concerns at this time. The patient was instructed to follow up with her primary care physician within one week. The patient was also instructed to follow-up at the surgery outpatient clinic. The patient verbalizes understanding. - Time Spent with Patient Total time spent providing and/or coordinating discharge services: - Discharge Medications Prescriptions: OxyCODONE/APAP 10/325 [Percocet 10/325 MG] 1 each PO Q6HR PRN 6 Days #24 tablet PRN Reason: Pain Ibuprofen [Motrin] 600 mg PO Q8HR PRN #30 tab PRN Reason: Pain Docusate [Colace] 100 mg PO BID PRN #30 capsule PRN Reason: Constipation Home Medications: Levothyroxine [Synthroid] 50 mcg PO 0630 11/10/17 [History] Omeprazole [PriLOSEC] 20 mg PO DAILY 11/10/17 [History] Docusate [Colace] 100 mg PO BID PRN #30 capsule 11/13/17 [Rx] Ibuprofen [Motrin] 600 mg PO Q8HR PRN #30 tab 11/13/17 [Rx] OxyCODONE/APAP 10/325 [Percocet 10/325 MG] 1 each PO Q6HR PRN 6 Days #24 tablet 11/13/17 [Rx] Allergies/Adverse Reactions: 3 Allergy/AdvReac Type Severity Reaction Status Date / Time No Known Allergies Allergy Verified 04/14/16 21:05 Date of admission: 11/10/17 21:42 Primary care physician: Kiara Gunn Consults: 11/11/17 09:56 Consult to Gastroenterology [CONS] Routine Consulting Provider: Gastroenterology Precious Reason for Consult: choledocholithiasis- Dr. Head notified this am per Dr. Rosas Time Notified: 09:57 Call Completed: Yes Labs on day of discharge: Labs from last 24 hours 11/13/17 11/13/17 11/12/17 04:54 04:54 12:39 WBC 10.0 RBC 3.54 L Hgb 10.6 L D Hct 32.7 L MCV 92.4 MCH 29.9 MCHC 32.4 RDW 13.2 Plt Count 208 MPV 10.9 Immature Gran % 0.5 Seg Neutrophils % 78.1 Lymphocytes % 11.8 Monocytes % 9.3 Eosinophils % 0.1 Basophils % 0.2 Neutrophils # 7.8 Lymphocytes # 1.2 Monocytes # 0.9 Eosinophils # 0.0 Basophils # 0.0 Sodium 140 Potassium 3.7 Chloride 109 H Carbon Dioxide 24 BUN 7 L Creatinine 0.62 Est GFR ( Amer) > 60 Est GFR (Non-Af Amer) > 60 BUN/Creatinine Ratio 11 Glucose 109 H POC Glucose 72 Calculated Osmolality 289 Calcium 8.2 L Total Bilirubin 0.7 Direct Bilirubin 0.2 Indirect Bilirubin 0.5 AST 20 ALT 15 Alkaline Phosphatase 111 H Serum Total Protein 6.6 Albumin 3.1 L Globulin 3.5 Albumin/Globulin Ratio 0.9 L - Impressions ITS Impressions Cholangiogram,Operative 11/11/17 00:00 IMPRESSION: 2 filling defects in the distal common duct which is mildly dilated. Findings are favored to represent choledocholithiasis over air bubbles due to lack of mobility on imaging. However, correlation with intraoperative findings is recommended. D/ / Wong Gleason MD / Wong Gleason MD Interpreting Provider: Wong Gleason MD Cath/Invasive Procedure 11/12/17 14:00 IMPRESSION: Interval placement of a common bile duct stent. Please refer to the procedure report for further details. D/ / 11/12/2017 15:33:53 Marcella Galdamez MD / raf Interpreting Provider: Marcella Galdamez MD - Patient Status Disposition: Home, Self-Care Condition: Good Functional capacity at discharge: independent ambulation Overall status at discharge: patient is progressing back to baseline - Discharge Instructions Instructions: Laparoscopic Cholecystectomy (DC), Endoscopic Retrograde Cholangiopancreatography (DC) Follow Up With: Kiara Gunn CNP [Primary Care Provider] - Yaa Pham CNP [Advanced Practice Nurse] - 11/23/17 1:15 pm (s/p laparoscopic cholecystectomy with Dr. Rosas. Status post ERCP) Additional Instructions: 1. No pushing, pulling, or lifting greater than 15 lbs for 4 weeks (depending upon procedure). 2. You may shower beginning today, but no tub baths, soaking, or swimming for 2 weeks. 3. You may resume driving when you are off narcotics and are safe to react in a car. 4. Take ibuprofen every 8 hours for discomfort. If this does not relieve discomfort, you may take the as needed Percocet. Take narcotics as directed. Do not take more narcotics then directed and do not share your narcotics with any other person. Do not drink alcohol while on narcotics. 5. Take stool softeners (Colace) or a water based laxative (Miralax) while taking narcotics. You may hold for loose stools. 6. Report any fevers greater than 100.5F, increase abdominal discomfort, drainage that looks like pus, increased redness or pain at the surgical site, or any vomiting. 7. Report any pain in the calves, shortness of breath, or rapid heartbeat. 8. Follow-up in the office as directed. 9. If you were prescribed antibiotics, do not stop them without talking to your provider. - Diet and Activity Activity: increase activity as tolerated Diet: advance to your usual diet
--- NOTE | 2017-11-13 11:41 | Gastroenterology Progress Note ---
<Agusto Neville - Last Filed: 11/13/17 11:39> Date of Encounter: 11/13/17 Time of Encounter: 10:15 - Assessment and plan (1) Cholelithiasis and acute cholecystitis with obstruction Status: Acute Assessment and plan: 11/12/17 ERCP revealed 2 biliary duct stones, patient underwent spincterotomy and CBD stent placement Continue regular diet, analgesics and antiemetics Patient will need outpatient endoscopic stent removal in 6 weeks. Please schedule follow up appointment with GI in clinic within 4 weeks (2) Status post laparoscopic cholecystectomy Status: Acute Assessment and plan: Patient had cholecystectomy 11/11/17 (3) Choledocholithiasis Status: Acute Assessment and plan: Patient will need outpatient endoscopic stent removal in 6 weeks. - Time Spent With Patient Total time spent is greater than 50% in coordination of care (as documented) at patient's floor/unit and/or counseling patient: - Subjective Interval history: Patient seen and examined. Patient reports mild RUQ pain and is tolerating PO intake. She denies any new complaints and is eager to go home. - Constitutional Vitals: Temp Pulse Resp BP Pulse Ox 97.8 F 79 15 86/52 92 11/13/17 06:56 11/13/17 06:56 11/13/17 06:56 11/13/17 06:56 11/13/17 06:56 General appearance: Present: cooperative, A&O X 3, no acute distress, answers questions appropriately - Head Head exam: Present: atraumatic, normocephalic - Eye Eye exam: Present: normal appearance, sclera anicteric - Neck Neck exam general surgery: Present: normal inspection, trachea midline - Respiratory Respiratory exam: Present: CTAB - Cardiovascular Cardiovascular exam: Present: RRR, +S1, +S2 - GI/Abdominal GI/Abdominal exam: Present: normal bowel sounds, soft, tenderness (RUQ, appropriate), no peritoneal signs - Rectal Rectal exam: Present: deferred - Extremities Exam Extremities exam: Present: warm. Absent: pedal edema, tenderness - Neurological Exam Neurological exam: Present: no focal deficits - Psychiatric Psychiatric exam: Present: normal affect, normal mood - Skin Skin exam: Present: dry, intact, normal color, warm Results - Labs CBC & Chem 7: 11/13/17 04:54 11/13/17 04:54 Labs: Last Result Calcium 8.2 mg/dL (8.6-10.3) L 11/13/17 04:54 Troponin I < 0.03 ng/mL (< 0.04) 11/10/17 18:27 Entire Visit Hgb 10.6 g/dL (11.5-15.4) L D 11/13/17 04:54 Hct 32.7 % (35.3-44.9) L 11/13/17 04:54 PT 11.4 Seconds (9.4-12.1) 11/10/17 18:27 Total Bilirubin 0.7 mg/dL (0.3-1.0) 11/13/17 04:54 AST 20 Units/L (13-39) 11/13/17 04:54 ALT 15 Units/L (7-52) 11/13/17 04:54 Amylase 38 Units/L (29-103) 11/10/17 20:11 Lipase 5 Units/L (11-82) L 11/10/17 20:11 - ABG ABG results: PT/INR, D-dimer PT 11.4 Seconds (9.4-12.1) 11/10/17 18:27 - Impressions Impressions Cath/Invasive Procedure 11/12/17 14:00 IMPRESSION: Interval placement of a common bile duct stent. Please refer to the procedure report for further details. D/ / 11/12/2017 15:33:53 Marcella Galdamez MD / raf Interpreting Provider: Marcella Galdamez MD - VTE Documentation of Mechanical Device: Intermittent pneumatic compression device Consult Discharge Plan - Plan Instructions: Laparoscopic Cholecystectomy (DC), Endoscopic Retrograde Cholangiopancreatography (DC) Additional Instructions: 1. No pushing, pulling, or lifting greater than 15 lbs for 4 weeks (depending upon procedure). 2. You may shower beginning today, but no tub baths, soaking, or swimming for 2 weeks. 3. You may resume driving when you are off narcotics and are safe to react in a car. 4. Take ibuprofen every 8 hours for discomfort. If this does not relieve discomfort, you may take the as needed Percocet. Take narcotics as directed. Do not take more narcotics then directed and do not share your narcotics with any other person. Do not drink alcohol while on narcotics. 5. Take stool softeners (Colace) or a water based laxative (Miralax) while taking narcotics. You may hold for loose stools. 6. Report any fevers greater than 100.5F, increase abdominal discomfort, drainage that looks like pus, increased redness or pain at the surgical site, or any vomiting. 7. Report any pain in the calves, shortness of breath, or rapid heartbeat. 8. Follow-up in the office as directed. 9. If you were prescribed antibiotics, do not stop them without talking to your provider. Referrals: Yaa Pham CNP [Advanced Practice Nurse] - 11/23/17 1:15 pm (s/p laparoscopic cholecystectomy with Dr. Rosas. Status post ERCP) Freddy Head MD [Partnered Physician] - (Web Request entered. Office will call with date and time of appointment. Thank you) Prescriptions: OxyCODONE/APAP 10/325 [Percocet 10/325 MG] 1 each PO Q6HR PRN 6 Days #24 tablet PRN Reason: Pain Ibuprofen [Motrin] 600 mg PO Q8HR PRN #30 tab PRN Reason: Pain Docusate [Colace] 100 mg PO BID PRN #30 capsule PRN Reason: Constipation <Michele Fernandez - Last Filed: 11/16/17 13:25> Date of Encounter: 11/13/17 - Time Spent With Patient Total time spent is greater than 50% in coordination of care (as documented) at patient's floor/unit and/or counseling patient: - Constitutional Vitals: Temp Pulse Resp BP Pulse Ox 98.5 F 86 18 124/62 94 11/13/17 14:21 11/13/17 14:21 11/13/17 14:21 11/13/17 14:21 11/13/17 14:58 Results - Labs CBC & Chem 7: 11/13/17 04:54 11/13/17 04:54 Labs: Last Result Calcium 8.2 mg/dL (8.6-10.3) L 11/13/17 04:54 Troponin I < 0.03 ng/mL (< 0.04) 11/10/17 18:27 Entire Visit Hgb 10.6 g/dL (11.5-15.4) L D 11/13/17 04:54 Hct 32.7 % (35.3-44.9) L 11/13/17 04:54 PT 11.4 Seconds (9.4-12.1) 11/10/17 18:27 Total Bilirubin 0.7 mg/dL (0.3-1.0) 11/13/17 04:54 AST 20 Units/L (13-39) 11/13/17 04:54 ALT 15 Units/L (7-52) 11/13/17 04:54 Amylase 38 Units/L (29-103) 11/10/17 20:11 Lipase 5 Units/L (11-82) L 11/10/17 20:11 - ABG ABG results: PT/INR, D-dimer PT 11.4 Seconds (9.4-12.1) 11/10/17 18:27 - Attending Attestation I examined this patient and my medical decision-making was reviewed with the Resident Physician. I agree with the documented findings, disposition and treatment plan as described except to the extent set forth below.
[2017-11-13 16:34] VITALS: BP 124/62
== END 2017-11-13 18:47 | disposition home or self-care (01) | DRG 419 ==
LOC: 3ANU 17:48 → EMEROO 17:48 → OBSVTOIN 21:42 → 3ANU 22:12
PROVIDERS: ADMIT Surgery; ATTEND Surgery